=== PATIENT | male | born 1930 | race Caucasian/White ===

== ENCOUNTER 2016-10-24 11:46 | Inpatient (IN) | payer OTHER ==
[~2016-10-24] VITALS: Ht 175.3 cm; Wt 82.4 kg
[~2016-10-24 11:46] MED LIST: ADULT LOW DOSE81 M1 PO; CALTRATE 600600 MG PO; FLOMAX0.4 MG PO; METAMUCIL FIBE3.4 GM PO; PLAVIX75 MG PO; PROSCAR5 MG PO; REQUIP0.25 MG GT; SAW PALMETTO160 MG PO; SYMMETREL100 MG PO; VICODIN,LORT1 TABLET PO; VITAMIN D400 UNIT PO; VITAMIN E400 UNIT PO
[2016-10-24 12:30] LABS: HEMATOCRIT 33.5 % (38.0-50.0); MCH 30.9 PG (29.0-34.0); MCHC 32.2 G/DL (30.0-36.0); MCV 95.7 FL (86-99); PLATELET COUNT 311 K/uL (156-360); RBC DIS.WIDTH-CV 17.5 % (11.8-14.6); RBC DIS.WIDTH-SD 57.9 % (39-53); WHITE BLOOD COUNT 11.7 K/uL (4.1-10.2)
[2016-10-24 12:40] LABS: ADD MIUA? YES; BILIRUBIN NEGATIVE; BLOOD MODERATE; COLOR YELLOW ((YELLOW)); GLUCOSE (STRIP) NEGATIVE; KETONES NEGATIVE; LEUKOCYTES LARGE; NITRITE NEGATIVE; PROTEIN (STRIP) NEGATIVE; SPECIFIC GRAVITY 1.017 (1.000-1.030); UROBILINOGEN 0.2 MG/DL (0.2-1.0)
[2016-10-24 12:47] LABS: EOSINOPHIL (%) 3.8 % (0-5); EOSINOPHIL COUNT 0.4 K/uL (0-0.3); IMMATURE GRANULOCYTE (%) 0.3 % (0.0-0.7); IMMATURE GRANULOCYTE COUNT 0.4 K/uL; LYMPHOCYTE COUNT 1.6 K/uL (1.0-2.8); MONOCYTE (%) 7.1 % (3-12); MONOCYTE COUNT 0.8 K/uL (0-0.8); NEUTROPHIL COUNT 8.8 K/uL (1.8-6.4)
[2016-10-24 12:54] LABS: CHLORIDE 83 mEq/L (99-109); POTASSIUM 5.2 mEq/L (3.7-5.4); SODIUM 127 mEq/L (136-147)
[2016-10-24 12:55] LABS: GLUCOSE 112 mg/dL (70-99)
[2016-10-24 12:57] LABS: ANION GAP 10 MEQ/L (2-14)
[2016-10-24 12:59] LABS: GFR ESTIMATE (CALCULATED) > 59 mL/min/
[2016-10-24 13:00] LABS: UREA NITROGEN (BUN) 36 mg/dL (9-23)
[2016-10-24 14:11] LABS: WHITE BLOOD CELLS 20-30 /HPF (0-5)
[2016-10-24 14:12] LABS: BACTERIA 1+; CASTS PRESENT /LPF; CRYSTALS NONE SEEN; EPITHELIAL CELLS RARE; HYALINE CASTS 0-5 /LPF; MUCUS RARE; UCUL ADDED? NO
[2016-10-24] MEDS ORDERED: ARTIFICIAL TEAR15 M1 BOTH EYES (16:08)
[2016-10-24] MEDS ORDERED: CACARB500L GT (16:09)
[2016-10-24] MEDS ORDERED: AMANTADINE100 MG GT (16:11)
[2016-10-24] MEDS ORDERED: COREG3.125 M1 GT (16:11)
[2016-10-24] MEDS ORDERED: PERIDEX1 ML MM (16:14)
[2016-10-24] MEDS ORDERED: DIGOXIN125 MCG GT (16:15)
[2016-10-24] MEDS ORDERED: LOVENOX60 MG/0.6 SC (16:15)
[2016-10-24] MEDS ORDERED: LASIX20 MG GT (16:16)
[2016-10-24] MEDS ORDERED: LASIX40 MG GT (16:17)
[2016-10-24] MEDS ORDERED: ZESTRIL2.5 MG GT (16:19)
[2016-10-24 16:21] LABS: TROP-I INTERPRETATION NEGATIVE; TROPONIN-I 0.05 ng/mL (0.0-0.30)
[2016-10-24] MEDS ORDERED: K-SOL20 MEQ/15 GT (16:21)
[2016-10-24] MEDS ORDERED: PROTONIX40 M1 PO (16:23)
[2016-10-24] MEDS ORDERED: SAMSCA15 MG GT (16:25)
[2016-10-24] MEDS ORDERED: SENEXON-S TABL1 EACH GT (16:26)
[2016-10-24] MEDS ORDERED: SODIUM CHLORIDE1 G1 GT (16:31)
[2016-10-24] MEDS ORDERED: VITAMIN C500 M1 GT (16:32)
[2016-10-24] MEDS ORDERED: VITAMIN D31000 UNI1 GT (16:33)
[2016-10-24] MEDS ORDERED: ZINC SULFATE220 M1 GT (16:36)
[2016-10-24] MEDS ORDERED: XARELTO15 MG GT (16:36)
[2016-10-24] MEDS ORDERED: DULCOLAX10 MG PR (16:40)
[2016-10-24] MEDS ORDERED: BENADRYL25 MG GT (16:41)
[2016-10-24] MEDS ORDERED: ACETAMINOPHEN325 M1 GT (16:43)
[2016-10-24] MEDS ORDERED: MILK OF MAGN GT (16:44)
[2016-10-24] MEDS ORDERED: XARELTO20 MG GT (17:22)
[2016-10-24] MEDS ORDERED: COUGH CONT100 MG/5 M PO (17:24)
[2016-10-24 19:42] LABS: TOTAL BILIRUBIN 0.3 mg/dL (0.0-1.0)
[2016-10-24 19:43] LABS: ALKALINE PHOSPHATASE 62 IU/L (3-129)
[2016-10-24 19:46] LABS: DIRECT BILIRUBIN 0.1 mg/dL (0.0-0.3)
[2016-10-24 19:53] LABS: DIGOXIN 0.5 ng/mL (0.8-2.0)
[2016-10-24 21:45] VITALS: BP 113/61
[2016-10-24 22:56] LABS: METH RESISTANT S AUREUS PCR POSITIVE (NEGATIVE)
[2016-10-24 23:00] VITALS: BP 113/67
[2016-10-24 23:29] LABS: PROBE CHECK PASS
[2016-10-25] VITALS (8 sets, daily range): BP systolic 90–113; BP diastolic 54–67
[2016-10-25 05:53] LABS: HEMATOCRIT 32.3 % (38.0-50.0); MCHC 31.9 G/DL (30.0-36.0); MCV 97.3 FL (86-99); MEAN PLAT.VOLUME 8.3 uM^3 (9.0-12.4); PLATELET COUNT 220 K/uL (156-360); RBC DIS.WIDTH-CV 17.3 % (11.8-14.6); RBC DIS.WIDTH-SD 61.9 % (39-53); RED BLOOD COUNT 3.32 M/uL (4.00-5.50); WHITE BLOOD COUNT 12.1 K/uL (4.1-10.2)
[2016-10-25 06:07] LABS: EOSINOPHIL COUNT 0.2 K/uL (0-0.3); IMMATURE GRANULOCYTE (%) 0.3 % (0.0-0.7); LYMPHOCYTE COUNT 1.2 K/uL (1.0-2.8); MONOCYTE (%) 7.5 % (3-12); MONOCYTE COUNT 0.9 K/uL (0-0.8); NEUTROPHIL (%) 80.1 % (45-76); NEUTROPHIL COUNT 9.7 K/uL (1.8-6.4)
[2016-10-25 06:26] LABS: ANION GAP 8 MEQ/L (2-14); CHLORIDE 94 MEQ/L (99-109); GFR ESTIMATE (CALCULATED) > 59 mL/min/; GLUCOSE 91 mg/dL (70-99); POTASSIUM 4.8 MEQ/L (3.7-5.4); SAMPLE HEMOLYSIS CHECK 0; SAMPLE ICTERIC CHECK 0; SAMPLE LIPEMIA CHECK 0; SODIUM 132 MEQ/L (136-147); UREA NITROGEN (BUN) 29 mg/dL (9-23)
[2016-10-25 07:15] LABS: HEMATOLOGY COMMENT 1 REV; USER ID NJR
[2016-10-25 07:37] LABS: INTERNAL CONTROL VALID? YES
[2016-10-25 17:38] LABS: URIC ACID 6.2 mg/dL (3.1-9.2)
[2016-10-26] VITALS (10 sets, daily range): BP systolic 90–117; BP diastolic 54–63
[2016-10-26 06:58] LABS: ANION GAP 7 MEQ/L (2-14); CHLORIDE 96 MEQ/L (99-109); GFR ESTIMATE (CALCULATED) > 59 mL/min/; GLUCOSE 86 mg/dL (70-99); POTASSIUM 4.7 MEQ/L (3.7-5.4); SAMPLE HEMOLYSIS CHECK 0; SAMPLE ICTERIC CHECK 0; SAMPLE LIPEMIA CHECK 0; SODIUM 133 MEQ/L (136-147); UREA NITROGEN (BUN) 23 mg/dL (9-23)
[2016-10-27] VITALS: BP 107/75
[2016-10-27 04:00] VITALS: BP 120/77
[2016-10-27 07:01] LABS: ANION GAP 7 MEQ/L (2-14); CHLORIDE 99 MEQ/L (99-109); GFR ESTIMATE (CALCULATED) > 59 mL/min/; GLUCOSE 103 mg/dL (70-99); POTASSIUM 4.7 MEQ/L (3.7-5.4); SAMPLE HEMOLYSIS CHECK 1; SAMPLE ICTERIC CHECK 0; SAMPLE LIPEMIA CHECK 0; SODIUM 137 MEQ/L (136-147); UREA NITROGEN (BUN) 19 mg/dL (9-23)
[2016-10-27 08:00] VITALS: BP 112/69
[2016-10-27 08:53] LABS: HEMATOCRIT 36.9 % (38.0-50.0); MCH 31.2 PG (29.0-34.0); MCHC 31.7 G/DL (30.0-36.0); MCV 98.4 FL (86-99); MEAN PLAT.VOLUME 9.2 uM^3 (9.0-12.4); PLATELET COUNT 215 K/uL (156-360); RBC DIS.WIDTH-CV 17.5 % (11.8-14.6); RBC DIS.WIDTH-SD 63.3 % (39-53); RED BLOOD COUNT 3.75 M/uL (4.00-5.50); WHITE BLOOD COUNT 11.1 K/uL (4.1-10.2)
[2016-10-27 12:00] VITALS: BP 97/62
[2016-10-27 16:00] VITALS: BP 133/82
[2016-10-27 20:00] VITALS: BP 96/67
[2016-10-28] VITALS: BP 113/78
[2016-10-28 04:00] VITALS: BP 107/66
[2016-10-28 05:18] LABS: HEMATOCRIT 35.9 % (38.0-50.0); MCH 30.4 PG (29.0-34.0); MCHC 30.9 G/DL (30.0-36.0); MCV 98.4 FL (86-99); MEAN PLAT.VOLUME 8.7 uM^3 (9.0-12.4); PLATELET COUNT 229 K/uL (156-360); RBC DIS.WIDTH-CV 17.2 % (11.8-14.6); RBC DIS.WIDTH-SD 61.8 % (39-53); RED BLOOD COUNT 3.65 M/uL (4.00-5.50); WHITE BLOOD COUNT 8.7 K/uL (4.1-10.2)
[2016-10-28 05:43] LABS: ANION GAP 6 MEQ/L (2-14); CHLORIDE 100 MEQ/L (99-109); GFR ESTIMATE (CALCULATED) > 59 mL/min/; GLUCOSE 125 mg/dL (70-99); POTASSIUM 4.4 MEQ/L (3.7-5.4); SAMPLE HEMOLYSIS CHECK 0; SAMPLE ICTERIC CHECK 0; SAMPLE LIPEMIA CHECK 0; SODIUM 138 MEQ/L (136-147); UREA NITROGEN (BUN) 18 mg/dL (9-23)
[2016-10-28 06:46] LABS: EOSINOPHIL (%) 2.5 % (0-5); EOSINOPHIL COUNT 0.2 K/uL (0-0.3); IMMATURE GRANULOCYTE (%) 0.3 % (0.0-0.7); MONOCYTE (%) 11.3 % (3-12); NEUTROPHIL (%) 73.7 % (45-76); NEUTROPHIL COUNT 6.4 K/uL (1.8-6.4)
[2016-10-28 07:07] VITALS: BP 105/67
== END 2016-10-28 12:10 | disposition designated cancer center or children's hospital (05) | DRG 871 ==
LOC: EME → EDBD 11:46 → EDOF 18:20 → 4WEST 18:20
PROVIDERS: Emergency Medicine; Hospitalist; Internal Medicine
PROC: 0HD6XZZ Extraction of Back Skin, External Approach (ICD-10-PCS; principal; 2016-10-25)
DX: A41.9 Sepsis, unspecified organism (principal); J18.9 Pneumonia, unspecified organism; J96.21 Acute and chronic respiratory failure with hypoxia; L89.153 Pressure ulcer of sacral region, stage 3; J90 Pleural effusion, not elsewhere classified; N39.0 Urinary tract infection, site not specified; G91.9 Hydrocephalus, unspecified; E87.1 Hypo-osmolality and hyponatremia; J81.1 Chronic pulmonary edema; J98.11 Atelectasis; J93.81 Chronic pneumothorax; I50.22 Chronic systolic (congestive) heart failure; R65.20 Severe sepsis without septic shock; D53.9 Nutritional anemia, unspecified; I73.9 Peripheral vascular disease, unspecified; I10 Essential (primary) hypertension; I48.0 Paroxysmal atrial fibrillation; I27.2 Other secondary pulmonary hypertension; I95.9 Hypotension, unspecified; Y95 Nosocomial condition; Z93.1 Gastrostomy status; Z93.0 Tracheostomy status; Z87.820 Personal history of traumatic brain injury; Z86.718 Personal history of other venous thrombosis and embolism
CPT/HCPCS: 70450; 71010; 71275; 80048; 80076; 80162; 80202; 81003; 82436; 82533 91; 83605; 83880; 83935; 84133; 84300; 84443; 84484; 84550; 84630 90; 85025; 85027; 87040; 87070; 87081; 87205; 87449; 87641; 93005; 94640; 94640 76; 94644; 94760; 94799; 99202; 99281; 99285; G9033; J0692; J1940; J1956; J3370; J7030; J7050; P9047

== ENCOUNTER 2016-12-12 12:22 | Inpatient (IN) | payer OTHER ==
[~2016-12-12] VITALS: Ht 175.3 cm; Wt 74.9 kg
[~2016-12-12 12:22] MED LIST changes: +ACETAMINOPHEN325 M1 GT; +AMANTADINE100 MG GT; +ARTIFICIAL TEAR15 M1 BOTH EYES; +BENADRYL25 MG GT; +CACARB500L GT; +COREG3.125 M1 GT; +COUGH CONT100 MG/5 M GT; +DIGOXIN125 MCG GT; +DULCOLAX10 MG PR; +K-SOL20 MEQ/15 GT; +LASIX20 MG GT; +LASIX40 MG GT; +LOVENOX60 MG/0.6 SC; +MILK OF MAGN GT; +PERIDEX1 ML MM; +PROTONIX40 M1 GT; +SAMSCA15 MG GT; +SENEXON-S TABL1 EACH GT; +SODIUM CHLORIDE1 G1 GT; +VITAMIN C500 M1 GT; +VITAMIN D31000 UNI1 GT; +XARELTO15 MG GT; +XARELTO20 MG GT; +ZESTRIL2.5 MG GT; +ZINC SULFATE220 M1 GT
[2016-12-12 13:59] LABS: EOSINOPHIL COUNT 0.2 K/uL (0-0.3); HEMATOCRIT 34.1 % (38.0-50.0); IMMATURE GRANULOCYTE (%) 0.3 % (0.0-0.7); IMMATURE GRANULOCYTE COUNT 0.4 K/uL; LYMPHOCYTE COUNT 1.7 K/uL (1.0-2.8); MCH 28.8 PG (29.0-34.0); MCHC 30.8 G/DL (30.0-36.0); MCV 93.4 FL (86-99); MEAN PLAT.VOLUME 9.4 uM^3 (9.0-12.4); MONOCYTE (%) 4.7 % (3-12); MONOCYTE COUNT 0.7 K/uL (0-0.8); NEUTROPHIL COUNT 13.1 K/uL (1.8-6.4); PLATELET COUNT 484 K/uL (156-360); RBC DIS.WIDTH-CV 17.3 % (11.8-14.6); RBC DIS.WIDTH-SD 56.5 % (39-53); RED BLOOD COUNT 3.65 M/uL (4.00-5.50); WHITE BLOOD COUNT 15.7 K/uL (4.1-10.2)
[2016-12-12 14:07] LABS: INTER. NORMALIZED RATIO 1.6
[2016-12-12 14:09] LABS: CHLORIDE 114 mEq/L (99-109); POTASSIUM 4.6 mEq/L (3.7-5.4); SODIUM 153 mEq/L (136-147)
[2016-12-12 14:11] LABS: GLUCOSE 134 mg/dL (70-99)
[2016-12-12 14:12] LABS: ANION GAP 12 MEQ/L (2-14)
[2016-12-12 14:13] LABS: TOTAL BILIRUBIN 0.3 mg/dL (0.0-1.0)
[2016-12-12 14:14] LABS: ALKALINE PHOSPHATASE 53 IU/L (3-129)
[2016-12-12 14:15] LABS: GFR ESTIMATE (CALCULATED) > 59 mL/min/
[2016-12-12 14:16] LABS: UREA NITROGEN (BUN) 52 mg/dL (9-23)
[2016-12-12] MEDS ORDERED: AMANTADINE50 MG/5 ML GT (15:04)
[2016-12-12] MEDS ORDERED: ARTIFICIAL TEAR1510 BOTH EYES (15:05)
[2016-12-12] MEDS ORDERED: MIDODRINE HCL5 MG GT (15:08)
[2016-12-12] MEDS ORDERED: BACTRIM,SEPT1 TABLET GT (15:14)
[2016-12-12] MEDS ORDERED: MILK OF MAGN GT ×2 (15:23→16:17)
[2016-12-12] MEDS ORDERED: JUVEN PACKET1 EACH GT (15:25)
[2016-12-12 18:46] VITALS: BP 90/58
[2016-12-12 19:00] VITALS: BP 95/57
[2016-12-12 19:34] LABS: METH RESISTANT S AUREUS PCR POSITIVE (NEGATIVE)
[2016-12-12 19:36] LABS: PROBE CHECK PASS
[2016-12-12 21:43] LABS: ANION GAP 10 MEQ/L (2-14); CHLORIDE 115 MEQ/L (99-109); GFR ESTIMATE (CALCULATED) > 59 mL/min/; GLUCOSE 118 mg/dL (70-99); POTASSIUM 4.4 MEQ/L (3.7-5.4); SAMPLE HEMOLYSIS CHECK 0; SAMPLE ICTERIC CHECK 0; SAMPLE LIPEMIA CHECK 0; SODIUM 153 MEQ/L (136-147); UREA NITROGEN (BUN) 45 mg/dL (9-23)
[2016-12-13] VITALS (8 sets, daily range): BP systolic 90–116; BP diastolic 54–67
[2016-12-13 00:52] LABS: POINT-OF-CARE METER ID UU14174216
[2016-12-13 06:38] LABS: HEMATOCRIT 34.8 % (38.0-50.0); MCH 29.3 PG (29.0-34.0); MCHC 30.5 G/DL (30.0-36.0); MCV 96.1 FL (86-99); MEAN PLAT.VOLUME 9.7 uM^3 (9.0-12.4); NRBC (%) 0.3 /100 WBC (0-0); PLATELET COUNT 429 K/uL (156-360); RBC DIS.WIDTH-CV 17.7 % (11.8-14.6); RED BLOOD COUNT 3.62 M/uL (4.00-5.50); WHITE BLOOD COUNT 14.8 K/uL (4.1-10.2)
[2016-12-13 07:06] LABS: ANION GAP 11 MEQ/L (2-14); CHLORIDE 114 MEQ/L (99-109); GFR ESTIMATE (CALCULATED) > 59 mL/min/; GLUCOSE 143 mg/dL (70-99); POTASSIUM 4.5 MEQ/L (3.7-5.4); SAMPLE HEMOLYSIS CHECK 0; SAMPLE ICTERIC CHECK 0; SAMPLE LIPEMIA CHECK 0; SODIUM 152 MEQ/L (136-147); UREA NITROGEN (BUN) 46 mg/dL (9-23)
[2016-12-13 07:57] LABS: EOSINOPHIL (%) 1.1 % (0-5); EOSINOPHIL COUNT 0.2 K/uL (0-0.3); IMMATURE GRANULOCYTE (%) 0.4 % (0.0-0.7); IMMATURE GRANULOCYTE COUNT 0.1 K/uL; LYMPHOCYTE COUNT 1.8 K/uL (1.0-2.8); MONOCYTE (%) 4.6 % (3-12); MONOCYTE COUNT 0.7 K/uL (0-0.8); NEUTROPHIL (%) 81.9 % (45-76); NEUTROPHIL COUNT 12.2 K/uL (1.8-6.4)
[2016-12-13 10:38] LABS: INFLUENZA A VIRAL ANTIGEN NEGATIVE; INFLUENZA B VIRAL ANTIGEN NEGATIVE
[2016-12-13 14:35] LABS: ADD MIUA? YES; BILIRUBIN NEGATIVE; BLOOD NEGATIVE; COLOR YELLOW ((YELLOW)); GLUCOSE (STRIP) NEGATIVE; KETONES NEGATIVE; LEUKOCYTES SMALL; NITRITE NEGATIVE; PROTEIN (STRIP) NEGATIVE; SPECIFIC GRAVITY 1.024 (1.000-1.030); UROBILINOGEN 0.2 MG/DL (0.2-1.0)
[2016-12-13 16:10] LABS: BACTERIA 2+ /HPF; EPITHELIAL CELLS NONE SEEN /HPF; MUCUS NONE SEEN /LPF; RED BLOOD CELLS 0-5 /HPF (0-5); UCUL ADDED? YES
[2016-12-14 03:10] VITALS: BP 102/58
[2016-12-14 06:46] LABS: HEMATOCRIT 33.5 % (38.0-50.0); MCH 28.7 PG (29.0-34.0); MCHC 29.6 G/DL (30.0-36.0); MCV 97.1 FL (86-99); MEAN PLAT.VOLUME 9.7 uM^3 (9.0-12.4); NRBC (%) 0.3 /100 WBC (0-0); PLATELET COUNT 392 K/uL (156-360); RBC DIS.WIDTH-CV 17.7 % (11.8-14.6); RBC DIS.WIDTH-SD 62.3 % (39-53); RED BLOOD COUNT 3.45 M/uL (4.00-5.50); WHITE BLOOD COUNT 16.1 K/uL (4.1-10.2)
[2016-12-14 07:11] LABS: ANION GAP 9 MEQ/L (2-14); CHLORIDE 117 MEQ/L (99-109); GFR ESTIMATE (CALCULATED) > 59 mL/min/; GLUCOSE 151 mg/dL (70-99); POTASSIUM 4.3 MEQ/L (3.7-5.4); SAMPLE HEMOLYSIS CHECK 0; SAMPLE ICTERIC CHECK 0; SAMPLE LIPEMIA CHECK 0; SODIUM 153 MEQ/L (136-147); UREA NITROGEN (BUN) 41 mg/dL (9-23)
[2016-12-14 07:45] VITALS: BP 97/65
[2016-12-14 08:19] LABS: HEMATOLOGY COMMENT 1 REV; PLAT.SUFFICIENCY ADEQUATE; USER ID DLS
[2016-12-14 08:31] LABS: EOSINOPHIL (%) 2.7 % (0-5); EOSINOPHIL COUNT 0.4 K/uL (0-0.3); IMMATURE GRANULOCYTE (%) 0.2 % (0.0-0.7); LYMPHOCYTE COUNT 1.7 K/uL (1.0-2.8); MONOCYTE (%) 2.9 % (3-12); MONOCYTE COUNT 0.5 K/uL (0-0.8); NEUTROPHIL (%) 83.3 % (45-76); NEUTROPHIL COUNT 13.5 K/uL (1.8-6.4)
[2016-12-14 11:30] VITALS: BP 98/66
[2016-12-14 16:51] VITALS: BP 110/67
[2016-12-14 19:30] LABS: ANION GAP 8 MEQ/L (2-14); CHLORIDE 119 MEQ/L (99-109); GFR ESTIMATE (CALCULATED) > 59 mL/min/; GLUCOSE 118 mg/dL (70-99); POTASSIUM 4.3 MEQ/L (3.7-5.4); SAMPLE HEMOLYSIS CHECK 0; SAMPLE ICTERIC CHECK 0; SAMPLE LIPEMIA CHECK 0; SODIUM 154 MEQ/L (136-147); UREA NITROGEN (BUN) 38 mg/dL (9-23)
[2016-12-14 19:45] VITALS: BP 96/58
[2016-12-15 00:30] VITALS: BP 100/52
[2016-12-15 04:44] VITALS: BP 104/60
[2016-12-15 09:00] VITALS: BP 122/76
[2016-12-15 16:00] VITALS: BP 100/64
[2016-12-15] MEDS ORDERED: DAKINS SOLUTIO473 ML TP (16:37)
[2016-12-15] MEDS ORDERED: Tears Naturale II,Ar BOTH EYES (16:38)
[2016-12-15] MEDS ORDERED: ATIVAN0.5 MG GT (16:48)
[2016-12-15] MEDS ORDERED: MORPHINE CON20 MG/M1 PO (16:48)
[2016-12-15] MEDS ORDERED: NULEV0.125 MG PO (16:48)
== END 2016-12-15 20:02 | disposition designated cancer center or children's hospital (05) | DRG 871 ==
LOC: EME 12:22 → 4EAST 15:00 → EDOF 15:00 → 4EAST 17:44
PROVIDERS: Emergency Medicine; Hospitalist; Internal Medicine; Internal Medicine Nephrology
DX: A41.9 Sepsis, unspecified organism (principal); J18.9 Pneumonia, unspecified organism; R47.01 Aphasia; E87.0 Hyperosmolality and hypernatremia; J96.10 Chronic respiratory failure, unspecified whether with hypoxia or hypercapnia; Z99.11 Dependence on respirator [ventilator] status; Z93.0 Tracheostomy status; E86.0 Dehydration; Z74.01 Bed confinement status; I48.0 Paroxysmal atrial fibrillation; R13.10 Dysphagia, unspecified; Z93.1 Gastrostomy status; I10 Essential (primary) hypertension; Z87.820 Personal history of traumatic brain injury; E22.2 Syndrome of inappropriate secretion of antidiuretic hormone; L89.150 Pressure ulcer of sacral region, unstageable; L89.511 Pressure ulcer of right ankle, stage 1; L89.520 Pressure ulcer of left ankle, unstageable; L89.892 Pressure ulcer of other site, stage 2; I73.9 Peripheral vascular disease, unspecified; R62.7 Adult failure to thrive; I95.9 Hypotension, unspecified; Z51.5 Encounter for palliative care
CPT/HCPCS: 71010; 80048; 80048 91; 80053; 81003; 82948; 83605; 85025; 85610; 87040; 87070; 87075; 87077; 87086; 87186; 87205; 87502; 87641; 93005; 94640; 94640 76; 94799; 99202; 99281; 99285; J2543; J3370; J7030; J7050